=== PATIENT | male | born 1965 | race Caucasian/White ===

== ENCOUNTER 2019-02-26 23:22 | Emergency (ER) | payer SELFPAY ==
[~2019-02-26] VITALS: Ht 182.9 cm; Wt 86.4 kg
[~2019-02-26 23:22] MED LIST: HYDR-4011 PO; IBUP-1542 PO
[2019-02-26 23:25] VITALS: Ht 182.9 cm; Wt 86.4 kg
[2019-02-27] MEDS ORDERED: IBUPROFEN 800 MG TAB PO ONE (01:00)
[2019-02-27 03:24] VITALS: BP 124/81; PULSE 72; RESP 18
== END 2019-02-27 03:25 | disposition home or self-care (01) ==
LOC: FTE 23:22
DX: S92.002A Unspecified fracture of left calcaneus, initial encounter for closed fracture (principal); W10.9XXA Fall (on) (from) unspecified stairs and steps, initial encounter; Y92.9 Unspecified place or not applicable
CPT/HCPCS: 72100; 73610

== ENCOUNTER 2019-03-04 11:31 | Emergency (ER) | payer SELFPAY ==
[~2019-03-04] VITALS: Ht 182.9 cm; Wt 87.4 kg
[2019-03-04 11:39] VITALS: BP 156/89; PULSE 84; RESP 16; Ht 182.9 cm; Wt 87.4 kg
== END 2019-03-04 13:15 | disposition home or self-care (01) ==
LOC: FTE 11:31
DX: S92.002D Unspecified fracture of left calcaneus, subsequent encounter for fracture with routine healing (principal); X58.XXXD Exposure to other specified factors, subsequent encounter
CPT/HCPCS: 99282